=== PATIENT | female | born 1990 | race Caucasian/White ===

== ENCOUNTER 2023-03-16 04:26 | Emergency (ER) | payer OTHER ==
[~2023-03-16] VITALS: Ht 160 cm; Wt 75.0 kg
[2023-03-16] MEDS ORDERED: TYLENOL # 31 TA1 PO (05:01)
[2023-03-16] MEDS ORDERED: NAPROXEN375 MG PO (05:01)
[2023-03-16] MEDS ORDERED: PERCOGESI1 PO (05:01)
[2023-03-16 05:29] VITALS: BP 110/85
== END 2023-03-16 05:44 | disposition home or self-care (01) ==
LOC: ED 04:26
DX: K04.7 Periapical abscess without sinus (principal); K02.9 Dental caries, unspecified; F17.210 Nicotine dependence, cigarettes, uncomplicated
CPT/HCPCS: J0561